=== PATIENT | female | born 1960 | race Two or more races ===

== ENCOUNTER 2025-06-17 11:46 | Emergency (ER) | payer OTHER ==
[2025-06-17 11:52] VITALS: BMI 36.8
[2025-06-17] MEDS ORDERED: ACETAMINOPHEN INJECTION 100 ML ONE (12:48)
[2025-06-17] MEDS: ACETAMINOPHEN 1000 MG/100 ML BAG IVPB ONE (13:04)
[2025-06-17 13:43] LABS: ABSOLUTE IMMATURE GRANULOCYTES 0.03 x10^3/uL (0.0-0.031); BASOPHILS # 0.02 x10^3/uL (0.01-0.08); EOSINOPHIL % 0.5 % (0.7-5.8); EOSINOPHILS # 0.04 x10^3/uL (0.04-0.36); MCHC 31.2 g/dl (32.2-35.5); MEAN CELL VOLUME 94.1 fl (79.4-94.8); MEAN PLT VOLUME 11.2 fl (9.4-12.3); MONOCYTE # 0.58 x10^3/uL (0.24-0.86); MONOCYTE % 7.3 % (4.7-12.5); RDW 13.9 % (12.4-16.4)
[2025-06-17 13:45] LABS: EPI CELLS 30 /uL (0-25.1); HYALINE CASTS 0 /uL (0-3.1); URINE APPEARANCE CLEAR; URINE BACTERIA 384 /uL (0-1359); URINE BILIRUBIN NEGATIVE (NEGATIVE); URINE COLOR YELLOW; URINE GLUCOSE (UA) 3+ (NEGATIVE); URINE KETONE NEGATIVE (NEGATIVE); URINE LEUK ESTERASE NEGATIVE (NEGATIVE); URINE NITRITE NEGATIVE (NEGATIVE); URINE PROTEIN NEGATIVE (NEGATIVE); URINE RBC 9 /uL (0-23.9); URINE UROBILINOGEN 1.0 mg/dL (0.2-1.0); URINE WBC 13 /uL (0-25.8)
[2025-06-17 14:13] LABS: CO2 26.0 mmol/L (21-32); GLUCOSE,RANDOM 94.0 mg/dL (74-106)
[2025-06-17 14:16] LABS: CREATININE 0.7 mg/dL (0.55-1.3); SGOT/AST 11.0 U/L (15-37); SGPT/ALT 20.0 U/L (13-61)
[2025-06-17 14:17] LABS: TOT PROT 7.2 g/dl (6.4-8.2)
[2025-06-17 14:18] LABS: ALK PHOS 88.0 U/L (45-117)
[2025-06-17 16:47] VITALS: TEMP 97.8
[2025-06-17] MEDS: LACTATED RINGERS SOLUTION 1000 ML INFUS.BAG IV ONE (17:06)
[2025-06-17 18:01] VITALS: BP 105/42; PULSE 54; RESP 16
[2025-06-18 00:21] LABS: HIV INTERPRETATION NEGATIVE (NEGATIVE)
[2025-06-18 00:23] LABS: HCV DIAGNOSTIC IN-HOUSE W/RFLX NON-REACTIVE (NONREACTIVE)
== END 2025-06-17 18:24 | disposition home or self-care (01) ==
LOC: JER 11:46
PROC: 3E033NZ Introduction of Analgesics, Hypnotics, Sedatives into Peripheral Vein, Percutaneous Approach (ICD-10-PCS; principal; 2025-06-17)
DX: R10.11 Right upper quadrant pain (principal); R10.31 Right lower quadrant pain; I95.9 Hypotension, unspecified
CPT/HCPCS: 36415; 76705-TC; 80053; 81003; 83690; 85025; 86803; 87086; 87389; 93005; 93010; 96374; 99285-25